=== PATIENT | male | born 1955 | race American Indian/Alaskan Native ===

== ENCOUNTER 2017-07-05 09:09 | Outpatient (CLI) | payer OTHER ==
--- NOTE | 2017-07-05 09:58 | XRay Report ---
Right shoulder 3 views: History: Shoulder pain. Findings: The a.c. joint appears normal. Mild arthritic changes in the glenohumeral joint. Sclerotic areas and cystic areas at the greater tuberosity. No soft tissue calcification. Impression: Arthritic changes glenohumeral joint. Cystic and sclerotic areas of the greater tuberosity probably related to chronic impingement or old injury.
== END 2017-07-05 09:10 | disposition home or self-care (01) ==
LOC: SPVIMAG 09:09
PROVIDERS: ATTEND Orthopaedic Surgery
DX: M19.011 Primary osteoarthritis, right shoulder (principal)